=== PATIENT | female | born 1960 | race Hispanic/Latino ===

== ENCOUNTER 2019-06-08 08:31 | Outpatient (CLI) | payer OTHER, SELFPAY ==
--- NOTE | ~2019-06-08 | MM_ITS ---
EXAMINATION: MM screening seferino BI w tai HISTORY: Screening mammogram TECHNIQUE: Craniocaudal and mediolateral oblique 3-D tomosynthesis images were obtained and synthetic 2-D images were generated. CAD analysis was submitted and interpreted. COMPARISON: 07/22/2018 bilateral digital screening mammogram BREAST PARENCHYMAL COMPOSITION: There are scattered areas of fibroglandular density. FINDINGS: There is no evidence of suspicious mass, calcification, or architectural distortion to sugg est malignancy in either breast. There has been no suspicious interval change. IMPRESSION: 1. No mammographic evidence of malignancy. 2. Recommend routine screening mammography in one year. BI-RADS Category 1: Negative Reviewed, dictated and finalized at location A. OFFICER
== END 2019-06-08 08:32 | disposition home or self-care (01) ==
LOC: ANHIMG 08:34
PROVIDERS: PCP Nurse Practitioner Adult Health; Visit Provider Nurse Practitioner Adult Health
DX: Z12.31 Encounter for screening mammogram for malignant neoplasm of breast (principal)
CPT/HCPCS: 77063; 77067

== ENCOUNTER 2019-09-07 23:10 | Emergency (ER) | payer OTHER, SELFPAY ==
--- NOTE | ~2019-09-07 | CT_ITS ---
EXAMINATION: CT abdomen pelvis w con DATE: 09/08/2019 02:26 INDICATION: Elevated liver function tests. Vomiting. TECHNIQUE: Computed tomography (CT) of the abdomen and pelvis was performed with 100 cc Omnipaque 350 intravenous contrast. Automated exposure control and iterative reconstruction technique were employe d. Exam dose: 823.25 mGy-cm total exam DLP. COMPARISON: 07/05/2018 CT abdomen pelvis FINDINGS: The lung bases are clear. Normal heart size. No pericardial or pleural effusion. There is surface nodularity of liver consistent with cirrhosis and somewhat mottled appearance densit y of the hepatic parenchyma, possibly due to regenerating nodules. Small hepatocellular carcinoma can not be definitively excluded. Recommend correlation with serum AFP.. No discrete hepatic space-occupy ing mass lesion is evident. The gallbladder is present. No bile duct or pancreatic duct dilatation. N o pancreatic mass lesion or calcification. Normal splenic size. Normal morphology of the adrenal glands. Approximately 3.3 cm right renal cyst. No urinary tract calculus or hydroureteronephrosis. The urinar y bladder is unremarkable. Status post hysterectomy. There is normal caliber of the abdominal aorta. No intraperitoneal or retroperitoneal or pelvic mass lesion or adenopathy or ascites. Very small hiatal hernia. Normal appendix. No bowel obstruction or intraperitoneal free air. Status post interbody and posterior spinal fusion at L5-S1. IMPRESSION: Cirrhosis Mottled appearance of hepatic parenchyma, which may be secondary to cirrhosis/regenerating nodules. S mall hepatocellular carcinoma cannot be definitively excluded. Consider correlation with serum AFP. Very small hiatal hernia Right renal cyst Status post hysterectomy Reviewed, dictated and finalized at Location A. Reviewed, dictated and finalized at location A. IMPRESSION: Cirrhosis Mottled appearance of hepatic parenchyma, which may be secondary to cirrhosis/r egenerating nodules. Small hepatocellular carcinoma cannot be definitively excl uded. Consider correlation with serum AFP. Very small hiatal hernia Right renal cyst Status post hysterectomy
--- NOTE | ~2019-09-07 | CT_ITS ---
EXAMINATION: CT brain wo con DATE: 09/08/2019 02:27 INDICATION: Headache. Vertigo. TECHNIQUE: Computed tomography (CT) of the head was performed without intravenous contrast. The mA wa s adjusted according to patient size. Iterative reconstruction technique was employed. Exam dose: 60 5.33 mGy-cm total exam DLP. COMPARISON: None FINDINGS: There is intravenous contrast material on board due to the prior CT abdomen and pelvis exam ination. No intracranial mass lesion or hemorrhage or cerebrovascular accident. No midline shift or mass effec t. Normal ventricular size. No subdural or epidural hematoma. No fracture or bone destruction of the cranial vault. IMPRESSION: No significant intracranial abnormality Reviewed, dictated and finalized at Location A. Reviewed, dictated and finalized at location A.
[2019-09-07 23:19] VITALS: BP 143/57; PULSE 79; RESP 18; TEMP 36.1; O2SAT 98
--- NOTE | 2019-09-07 23:40 | ECG_ITS ---
Measurements Intervals [place] Rate: 75 P: 43 [place]: 157 QRS: 43 QRSD: 84 T: 56 QT: 384 QTc: 431 Interpretive Statements SINUS RHYTHM BASELINE WANDER- II, V2-V6 BORDERLINE ECG Electronically Signed On 09-08-2019 7:11:36 CDT by Alex Ordonez D.O.
[2019-09-07 23:41] LABS: Basophils Percent Auto 0.4 % (0.2-1.2); Eosinophils Percent Auto 0.4 % (0-4.4); Hematocrit 43.9 % (37.0-47.0); Hemoglobin 14.7 g/dL (12.0-15.0); Immature Granulocyte Absolute 0.01 K/mm3 (0.00-0.031); Immature Granulocyte Percent A 0.2 % (0-0.5); Lymphocytes Absolute Auto 1.59 K/mm3 (0.9-3.2); Lymphocytes Percent Auto 29.7 % (18.3-44.2); Mean Corpuscular HGB Conc 33.5 g/dl (32-36); Mean Corpuscular Hemoglobin 30.4 pg (26-34); Mean Corpuscular Volume 90.7 fl (80-100); Mean Platelet Volume 10.7 fl (7.4-10.4); Monocytes Absolute Auto 0.8 K/mm3 (0.1-0.6); Monocytes Percent Auto 14.4 % (2.6-8.5); Neutrophils Absolute Auto 2.9 K/mm3 (1.3-6.7); Neutrophils Percent Auto 54.9 % (45.5-73.1); Platelet Count Result 166 k/mm3 (150-375); Red Blood Count 4.84 M/mm3 (4.2-5.4); Red Cell Distribution Width 14.3 % (11.5-14.5); White Blood Count 5.4 K/mm3 (4.5-10.0)
[2019-09-07 23:52] LABS: Alanine Aminotransferase 276 U/L (4-35); Albumin Level 4.2 g/dL (3.5-5.1); Alkaline Phosphatase 208 U/L (38-126); Aspartate Amino Transferase 491 U/L (14-36); Bilirubin,Total 0.4 mg/dL (0.2-1.3); Blood Urea Nitrogen 11 mg/dL (7-17); Calcium 9.4 mg/dL (8.4-10.2); Carbon Dioxide 27 mmol/L (22-30); Chloride 100 mmol/L (98-107); Estimated Glomerular Filt Rate > 60; Glucose 332 mg/dL (65-105); Lipase 149 U/L (23-300); Potassium 3.9 mmol/L (3.4-5.0); Sodium 135 mmol/L (137-145)
[2019-09-08] VITALS (7 sets, daily range): BP systolic 121–153; BP diastolic 55–95; PULSE 64–77; RESP 18–24; TEMP 37.2; O2SAT 95–98
--- NOTE | 2019-09-08 02:02 | ED.HA ---
HPI - Headache General Chief Complaint: Nausea/Vomiting/Diarrhea Stated Complaint: dizzy, vomiting, weak X2 weeks Time Seen by Provider: 09/08/19 01:54 History of Present Illness HPI Narrative: Patient presents with her daughter for headache and vertigo for 2-week. She has had short episodes of vertigo prior to that. She does not have history of migraine headaches. She vomits when the vertigo gets so bad. She knows about the elevated liver function, and has a GI doctor and has had a liver biopsy. As far as she knows all she has is fatty liver and possibly cirrhosis. She has abdominal pain periumbilical since yesterday. Her last vomiting was noon yesterday. She has not had any fever. She gives a headache is 7 out of 10. Her primary language is Irish and her daughter does some interpreting for us. MD elicited complaint: headache Related Data Allergies Allergy/AdvReac Type Severity Reaction Status Date / Time aspirin Allergy Intermediate Hives / Verified 07/05/18 18:20 Red Face Review of Systems Review of Systems: Narrative: CONSTITUTIONAL: Denies fever, chills, or sweats. EYES: Denies visual changes, redness, or discharge. ENT: Denies rhinorrhea, congestion, sore throat, or otalgia. CARDIOVASCULAR: Denies chest pain, palpitations, or edema. RESPIRATORY: Denies cough or dyspnea. GASTROINTESTINAL: He has abdominal pain, nausea, vomiting, but not diarrhea. GENITOURINARY: Denies dysuria or hematuria. SKIN: Denies rash or itching. MUSCULOSKELETAL: Denies back pain, joint pain, or myalgia. NEUROLOGIC: Denies numbness, or weakness. She has dizziness like the room is spinning. PSYCHIATRIC: Denies anxiety or depression. [facility] Surgical History Surgical History (Updated 09/08/19 @ 02:05 by Nano Saunders MD) History of hysterectomy History of lumbar fusion Social History Social History (Updated 09/08/19 @ 02:05 by Nano Saunders MD) Smoking status: Never smoker Alcohol intake: never Substance use: never Gender identity (if verbalized by the patient): Female Exam Narrative: Exam Narrative: GENERAL: Well-appearing, well-nourished, and in no acute distress. HEAD: Normocephalic, atraumatic. EYES: PERRLA and EOMI. ENT: Nares clear, no rhinorrhea or epistaxis. Mucous membranes moist. NECK: Supple. CHEST: Clear to auscultation. No respiratory distress. HEART: Regular rate and rhythm. No murmur heard. Normal peripheral pulses. ABDOMEN: Soft, mild tenderness about the umbilicus, nondistended, normal active bowel sounds. EXTREMITIES: Normal range of motion. No edema. SKIN: Warm, dry, no rash. NEURO: No focal deficits. Alert and oriented x3. PSYCH: Normal mood and affect. Course Reevaluation(s) Reevaluation #1: Went in to discuss the results of the CAT scans with the patient and her daughter. The medication and IV fluids has made her much better, but the vertigo is not entirely gone. I offered prescriptions and she accepts. I will also give them the name of her neurologist for follow-up. She sees Dr. Anglin at [facility] in [place] Date: 09/08/19 Time: 03:29 Vital Signs Vital signs: Vital Signs Temperature 97.0 F L 09/07/19 23:19 Pulse Rate 79 09/07/19 23:19 Respiratory Rate 18 09/07/19 23:19 Blood Pressure 143/57 H 09/07/19 23:19 Pulse Oximetry 98 09/07/19 23:19 Temperature 99.0 F 09/08/19 00:03 Pulse Rate 66 09/08/19 03:14 Respiratory Rate 24 H 09/08/19 03:14 Blood Pressure 136/67 09/08/19 03:14 Pulse Oximetry 95 09/08/19 03:14 MDM - Headache Differential Diagnosis Differential diagnosis: Likely migraine, tension headache and headache Medical Records Attestation: I reviewed the patient's medical records. Lab Data Attestation: I reviewed the patient's lab results. Result diagrams: 09/07/19 23:34 09/07/19 23:34 Labs: Lab Results 09/07/19 09/07/19 Range/Units 23:34 23:34 WBC 5.4 (4.5-10.0) K/mm3 RBC 4.84 (4.2-5.4) M/m
[2019-09-08] MEDS: METOCLOPRAMIDE HCL INJ 10 MG/2 ML VIAL IV PUSH (02:09)
[2019-09-08] MEDS: SODIUM CHLORIDE 0.9% IV 1,000 ML 999 ML IV CONT (02:09)
--- NOTE | 2019-09-25 11:17 | PC.NURSE ---
LATE ENTRY This note is being entered to document information to the patient's record. The following information was omitted on [09/08/19 ], by [Dayday Jordan RN]. NS stop time 0305, 1000ml infused
== END 2019-09-08 03:52 | disposition home or self-care (01) ==
PROVIDERS: Emergency Provider Emergency Medicine; PCP Nurse Practitioner Adult Health
DX: R42 Dizziness and giddiness (principal); R51 Headache; R11.2 Nausea with vomiting, unspecified; K74.60 Unspecified cirrhosis of liver; R94.31 Abnormal electrocardiogram [ECG] [EKG]; Z98.1 Arthrodesis status
CPT/HCPCS: 36415; 70450; 74177; 80053; 83690; 85025; 93005; 96361; 96374; 96375; 99284; J1200; J2765; J7030; Q9967

== ENCOUNTER 2019-09-19 18:07 | Inpatient (IN) | payer OTHER, SELFPAY ==
[2019-09-19] VITALS (7 sets, daily range): BP systolic 106–128; BP diastolic 60–68; PULSE 64–74; RESP 14–28; TEMP 36.6–36.8; O2SAT 90–98; BMI 31.0
--- NOTE | ~2019-09-19 | XR_ITS ---
EXAMINATION: XR chest 1V portable DATE: 09/19/2019 18:45 INDICATION: Shortness of breath. Posterior chest pain radiating anteriorly. TECHNIQUE: frontal view of the chest was obtained. COMPARISON: None FINDINGS: Small lung volumes. Diffuse bilateral airspace opacities. No pleural effusion or pneumothorax. The ca rdiomediastinal silhouette is within normal limits for AP technique. Visualized bones and soft tissue s are unremarkable. IMPRESSION: 1. Diffuse bilateral lung disease which could represent pulmonary edema and/or pneumonia. Reviewed, dictated and finalized at location A.
--- NOTE | ~2019-09-19 | CT_ITS ---
EXAMINATION: CTA chest PE protocol DATE: 09/20/2019 12:48 INDICATION: Hemoptysis. TECHNIQUE: Computed tomography angiography (CTA) of the chest was performed with 100 mL Omnipaque-350 intravenous contrast timed to evaluate the pulmonary arteries. Coronal maximum intensity projection 3D-reconstructions were created by the technologist. Automated exposure control and iterative reconst ruction technique were employed. The dose-length product was 396.91 mGy-cm. COMPARISON: CT abdomen and pelvis 09/08/2019 FINDINGS: There are scattered groundglass and airspace opacities involving all lobes. No pleural effu kassy. The heart size is normal. No pericardial effusion. There is no pulmonary embolus. There is mild mediastinal lymphadenopathy, likely reactive. The liver demonstrates surface nodularity and steatosi s, consistent with cirrhosis. There is mild thoracic spondylosis. IMPRESSION: 1. Diffuse lung disease, consistent with COVID-19 pneumonia. 2. No pulmonary embolus. Sensitivity is mildly decreased by motion artifact. 3. Mild mediastinal lymphadenopathy, likely reactive. 4. Cirrhosis of the liver. Reviewed, dictated and finalized at location A.
--- NOTE | 2019-09-19 18:25 | ECG_ITS ---
Measurements Intervals [place] Rate: 68 P: 5 [place]: 146 QRS: 9 QRSD: 89 T: 2 QT: 423 QTc: 450 Interpretive Statements SINUS RHYTHM EARLY PRECORDIAL R/S TRANSITION NONSPECIFIC ST & T-WAVE ABNORMALITY- INFERIOR LEADS BASELINE ARTIFACT- I, II, AVR, AVL, AVF, V4-V6 BORDERLINE ECG Electronically Signed On 09-20-2019 6:55:30 CDT by Alex Ordonez D.O.
--- NOTE | 2019-09-19 18:41 | ED.GENADULT ---
HPI - General Adult General Chief complaint: Chest Pain Stated complaint: ABN Chest xray Time Seen by Provider: 09/19/19 18:22 History of Present Illness HPI narrative: Patient is a 59 y/o female complaining of cough for last 2-3 weeks. She states that she coughs up blood occasionally. There is no alleviating or exacerbating factor. She has some chest pain with cough. She denies any fever or SOB. Of note, her is hospitalized for COVID infection. She tested negative for COVID recently. Patient does not speak fluent [place]. Daughter provided some history and provided translation. Related Data Home Medications Medication Instructions Recorded Confirmed cephalexin 09/19/19 ergocalciferol (vitamin D2) 09/19/19 famotidine 09/19/19 folic acid 09/19/19 meclizine mg 09/19/19 metformin mg 09/19/19 Allergies Allergy/AdvReac Type Severity Reaction Status Date / Time aspirin Allergy Intermediate Hives / Verified 09/19/19 18:32 Red Face Review of Systems Constitutional: Constitutional: Denies chills, Denies fever(s), Denies headache(s) and Denies weakness Eyes: Eyes: Denies blurry vision ENT: Denies headache(s) and Denies neck pain Cardiovascular: Cardiovascular: Reports chest pain and Denies dyspnea Respiratory: Respiratory: Reports cough and Denies dyspnea Gastrointestinal: Gastrointestinal: Denies abdominal pain, Denies diarrhea, Denies nausea and Denies vomiting Genitourinary: Genitourinary: Denies hematuria and Denies dysuria Musculoskeletal: Musculoskeletal: Denies back pain and Denies neck pain Neurologic: Denies headache(s) and Denies weakness [facility] Surgical History Surgical History History of hysterectomy History of lumbar fusion Social History Social History Smoking status: Never smoker Alcohol intake: never Substance use: never Gender identity (if verbalized by the patient): Female Exam Const: General: no acute distress and well developed Orientation/consciousness: oriented to person, oriented to place, oriented to time and patient oriented x3 HENMT: Head: normocephalic Ears: external ears normal General nose exam: Normal external nose present Eyes: General: appearance normal, both eyes and all related structures Conjunctivae: conjunctivae normal Neck: Neck: normal visual inspection and full ROM Chest: Chest palpation & inspection: normal inspection of the chest and no tenderness Resp: Effort & Inspection: normal respiratory effort Auscultation: clear to auscultation bilaterally Cardio: Rate: regular rate Rhythm: regular rhythm GI: GI Palp: No abdominal tenderness and Yes Soft to palpation Skin: General skin exam: normal color and turgor normal Neuro: General: oriented to person, oriented to place, oriented to time and patient oriented x3 Cognition (Neuro): normal cognition Extrem: General: normal to inspection, full ROM and no pedal edema Psych: Appearance: grossly normal Mental Status: mental status grossly normal Affect: normal affect Course Consultations Consultation #1: Discussed with Dr. Liang, who agrees to admit and recommends starting Zithromax. Date: 09/19/19 Time: 20:30 Vital Signs Vital signs: Vital Signs Temperature 36.8 C 09/19/19 18:26 Pulse Rate 74 09/19/19 18:26 Respiratory Rate 19 09/19/19 18:26 Blood Pressure 126/68 09/19/19 18:26 Pulse Oximetry 96 09/19/19 18:26 Temperature 36.8 C 09/19/19 18:26 Pulse Rate 68 09/19/19 19:15 Respiratory Rate 28 H 09/19/19 19:15 Blood Pressure 107/65 09/19/19 19:15 Pulse Oximetry 90 09/19/19 19:15 Medical Decision Making Vital Signs Vital Signs: Vital Signs Temperature 36.8 C 09/19/19 18:26 Pulse Rate 74 09/19/19 18:26 Respiratory Rate 19 09/19/19 18:26 Blood Pressure 126/68 09/19/19 18:26 Pulse Oximetry 96 09/19/19 18:26
[2019-09-19 18:43] LABS: Basophils Percent Auto 0.3 % (0.2-1.2); Eosinophils Absolute Auto 0.1 K/mm3 (0-0.3); Hematocrit 40.8 % (37.0-47.0); Hemoglobin 13.8 g/dL (12.0-15.0); Immature Granulocyte Absolute 0.02 K/mm3 (0.00-0.031); Immature Granulocyte Percent A 0.3 % (0-0.5); Lymphocytes Absolute Auto 2.22 K/mm3 (0.9-3.2); Lymphocytes Percent Auto 30.8 % (18.3-44.2); Mean Corpuscular HGB Conc 33.8 g/dl (32-36); Mean Corpuscular Hemoglobin 30.3 pg (26-34); Mean Corpuscular Volume 89.5 fl (80-100); Mean Platelet Volume 11.2 fl (7.4-10.4); Monocytes Absolute Auto 0.9 K/mm3 (0.1-0.6); Monocytes Percent Auto 11.8 % (2.6-8.5); Neutrophils Percent Auto 55.8 % (45.5-73.1); Platelet Count Result 215 k/mm3 (150-375); Red Blood Count 4.56 M/mm3 (4.2-5.4); Red Cell Distribution Width 13.6 % (11.5-14.5); White Blood Count 7.2 K/mm3 (4.5-10.0)
[2019-09-19 18:56] LABS: Alanine Aminotransferase 74 U/L (4-35); Albumin Level 3.8 g/dL (3.5-5.1); Alkaline Phosphatase 173 U/L (38-126); Aspartate Amino Transferase 66 U/L (14-36); Bilirubin,Total 0.8 mg/dL (0.2-1.3); Blood Urea Nitrogen 6 mg/dL (7-17); Calcium 8.3 mg/dL (8.4-10.2); Carbon Dioxide 21 mmol/L (22-30); Chloride 102 mmol/L (98-107); Estimated Glomerular Filt Rate > 60; Glucose 194 mg/dL (65-105); Potassium 3.8 mmol/L (3.4-5.0); Sodium 132 mmol/L (137-145)
[2019-09-19 19:08] LABS: Troponin I < 0.012 ng/mL (0.000-0.034)
[2019-09-19 19:11] LABS: Add Urine Microscopic? NO; Appearance Urine Clear (Clear); Bilirubin Urine Negative (Negative); Blood Urine Negative (Negative); Color Urine Colorless (Yellow); Glucose Urine UA Negative (Negative); Ketones Urine Negative (Negative); Leukocyte Esterase Ur Negative LEU/UL (Negative); Nitrate Urine Negative (Negative); Protein Urine Negative (Negative); Urobilinogen Urine Negative mg/dL (<2.0)
[2019-09-19 19:13] LABS: Specific Grav Ur 1.003 (1.001-1.035)
[2019-09-19 19:17] LABS: INR 1.1; Prothrombin Time 13.4 Seconds (11.1-14.7)
[2019-09-19 19:18] LABS: Partial Thromboplastin Time 29.6 SECONDS (22.3-36.8)
--- NOTE | 2019-09-19 19:21 | PC.NURSE ---
called lab for add ons
[2019-09-19 19:40] LABS: CRP 3.6 mg/dL (<1.0); Lactate Dehydrogenase 803 U/L (313-618)
[2019-09-19 20:39] LABS: Hepatitis B Surface Antigen Negative (Negative)
[2019-09-19 20:44] LABS: HAV RESULT Negative (Negative); Hepatitis B Core IgM Result Negative (Negative)
[2019-09-19 20:56] LABS: Hepatitis C Virus Antibody Negative (Negative)
--- NOTE | 2019-09-19 21:55 | ADMGEN ---
This patient, Paloma Preston, was admitted to 3 [facility] Surg Room 330-01. Patient/family oriented to hospital policies and general routines including ID bracelet, bed and alarms, visiting hours, pain management, procedures, bathroom and other care routines, personal items, smoking policy, room service/diet, and visiting hours. Valuables list has been completed. Information on how to activate the Rapid Response Team has been discussed. Patient/Family are encouraged to report perceived risks to care and to ask questions if they do not understand what they are told or what they should do.
[2019-09-20] VITALS (14 sets, daily range): BP systolic 100–139; BP diastolic 48–69; PULSE 48–76; RESP 16–20; TEMP 36.2–36.9; O2SAT 92–100
[2019-09-20] MEDS: DULOXETINE 60 MG CAPSULE.DR PO (09:01)
[2019-09-20] MEDS: PANTOPRAZOLE 40 MG TABLET PO ×2 (09:01→17:06)
[2019-09-20] MEDS: FOLIC ACID 1 MG TABLET PO (09:01)
[2019-09-20] MEDS: FAMOTIDINE 20 MG TABLET PO (09:01)
[2019-09-20 09:03] LABS: Glucose Point of Care 161 (65-105)
--- NOTE | 2019-09-20 12:04 | PM.IMHP ---
H&P: HPI History of Present Illness Chief complaint: pneumonia Narrative: Paloma Preston is a 59 year old female with PMH significant for T2DM, GERD, anxiety, MALORIE, cirrhosis, and arthritis who presented to the ED with a c/o cough for the past month. She reports that she occasionally coughs up bright red blood. She reports that she developed chest wall and back discomfort after having several severe coughing fits and notes that she occasionally has pleuritic discomfort. She reports that she went to see her PCP who advised that she come to the ED for further evaluation. She endorses that her is currently hospitalized at [facility] for COVID-19 and has been in the hospital for approximately 1 week. She reports that she previously tested negative for COVID-19. She denies associated fever and chills. She denies shortness of breath. She denies palpitations. She reports poor appetite for the past 3 weeks and notes weight loss. She also endorses malaise. She reports that she has a hx of tuberculosis 20 years ago and notes that she was treated with antibiotics for 6 months but cannot remember the exact antibiotics. Initial workup in the ED revealed WBC 7.2, Hb 13.8, Hct 40.8, platelet count of 215, sodium 132, potassium 3.2, CO2 21, BUN 6, Cr 0.4, glucose 194, ferritin 266, AST 66, ALT 74, ALP 173, troponin <0.012, CRP 3.6, UA unremarkable, hepatitis panel negative, and CXR with diffuse bilateral airspace opacities. She was treated with IV azithromycin and admitted to the hospitalist service. Review of Systems Review of Systems: Narrative: Constitutional: Denies fever and chills. Reports decreased appetite,weight loss, and malaise. Eyes: Denies vision change. No additional eye complaints. ENT: Denies change in hearing, nasal congestion, dysphagia, odynophagia, and sore throat. Cardiovascular: Denies palpitations and angina. Denies PND and orthopnea. Denies dyspnea on exertion. Respiratory: Reports cough for approximately 1 month with occasional blood. Reports chest and back discomfort with coughing and pleuritic discomfort. Gastrointestinal: Denies abdominal pain, nausea, and vomiting. Denies diarrhea and constipation. Genitourinary: Denies dysuria, frequency, urgency, and hesitancy. Reports that she was recently prescribed cephalexin for a UTI. Musculoskeletal: Reports chronic joint discomfort from arthritis. Skin: Denies lesions and wounds. Neurologic: Denies focal weakness, paresthesias, confusion, and speech change. Psychiatric: Denies mood change. Denies anxiety and depression. Hematologic: Denies easy bruising and bleeding. All systems reviewed & are unremarkable except as noted in HPI and below PMFSH Past Medical History Medical History (Updated 09/20/19 @ 15:02 by Giulia Viveros PA-C) Anxiety Arthritis Cirrhosis of liver She reports a hx of liver cirrhosis. She follows with a specialist at [facility]. She reports that she had a biopsy per her [facility] specialist but cannot provide any further details. GERD (gastroesophageal reflux disease) History of active tuberculosis Sleep apnea Type 2 diabetes mellitus Vertigo Surgical History Surgical History (Updated 09/20/19 @ 14:18 by Giulia Viveros PA-C) History of hysterectomy History of lumbar fusion History of total left hip arthroplasty Family History Family History (Updated 09/20/19 @ 14:21 by Giulia Viveros PA-C) Mother No problems noted. Father Diabetes mellitus Other Kidney disease Social History Social History (Updated 09/20/19 @ 14:26 by Giulia Viveros PA-C) Social History: Mrs. Preston reports that she lives at home in [place], [place] with her and two of her seven children. She reports that she has not worked in 4 years. 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 She wishes to be a full code. She has designated her , Yvonne Preston, as her surrogate decision maker. Smoking status: Never smoker Alcohol intake: never S
[2019-09-20 12:31] LABS: Glucose Point of Care 199 (65-105)
[2019-09-20 12:45] LABS: SARS-CoV-2 RNA PCR Positive
[2019-09-20] MEDS: ONDANSETRON HCL ODT 4 MG TABLET PO (15:36)
--- NOTE | 2019-09-20 16:29 | PC.NURSE ---
Addendum entered by Alysa Reyna RN 09/20/19 16:46: Pt is A&O x 4, and has cell phone and house phone at bedside. Original Note: Pt's daughter had her employer call and request this nurse call the daughter (Stacey) for an update regarding pt's status. This daughter was not listed on the pt's medical chart be given information, so this nurse checked with pt, that it was ok to give this daughter (Stacey) information. Pt stated, Stacey could be given information. Called Stacey at the number provided by her employer. Stacey was upset and had concerns regrading her mother's care and medical plan. Educated daughter that pt's are often initially NPO in case testing or procedures are needed. Since I have been on shift, pt has eaten both breakfast and lunch. Lunch was slightly delayed due to pt going for a test, and that staff has been in pt's room multiple times throughout this shift. Pt has been up to the bathroom, given medication, food/water, and checked in on frequently. Communication between staff and pt has been very easy, however the head waiter/waitress device is available as needed. Notified Stacey that pt's COVID test just resulted, and pt is positive. Stacey stated she was unaware pt's test was positive, however she had her employer call stating that she had to be isolated and needed more information for her work
[2019-09-20] MEDS: INSULIN ASPART (*BKC) 100 UNITS/ML SUB-Q (17:09)
[2019-09-20 18:09] LABS: Glucose Point of Care 257 (65-105)
[2019-09-20] MEDS: ENOXAPARIN 40 MG/0.4 ML SYRINGE SUB-Q (20:22)
[2019-09-20 21:23] LABS: Glucose Point of Care 239 (65-105)
[2019-09-21] VITALS (9 sets, daily range): BP systolic 130–151; BP diastolic 56–66; PULSE 61–70; RESP 16–18; TEMP 36.6; O2SAT 92–97
[2019-09-21 06:24] LABS: Basophils Percent Auto 0.5 % (0.2-1.2); Eosinophils Absolute Auto 0.1 K/mm3 (0-0.3); Eosinophils Percent Auto 1.2 % (0-4.4); Hematocrit 40.7 % (37.0-47.0); Hemoglobin 13.7 g/dL (12.0-15.0); Immature Granulocyte Absolute 0.01 K/mm3 (0.00-0.031); Immature Granulocyte Percent A 0.2 % (0-0.5); Lymphocytes Percent Auto 40.8 % (18.3-44.2); Mean Corpuscular HGB Conc 33.7 g/dl (32-36); Mean Corpuscular Hemoglobin 30.3 pg (26-34); Mean Platelet Volume 10.5 fl (7.4-10.4); Monocytes Absolute Auto 0.5 K/mm3 (0.1-0.6); Monocytes Percent Auto 8.5 % (2.6-8.5); Neutrophils Absolute Auto 2.8 K/mm3 (1.3-6.7); Neutrophils Percent Auto 48.8 % (45.5-73.1); Platelet Count Result 230 k/mm3 (150-375); Red Blood Count 4.52 M/mm3 (4.2-5.4); Red Cell Distribution Width 13.3 % (11.5-14.5); White Blood Count 5.6 K/mm3 (4.5-10.0)
[2019-09-21 06:40] LABS: Alanine Aminotransferase 67 U/L (4-35); Albumin Level 3.3 g/dL (3.5-5.1); Alkaline Phosphatase 168 U/L (38-126); Aspartate Amino Transferase 63 U/L (14-36); Bilirubin,Total 0.5 mg/dL (0.2-1.3); Blood Urea Nitrogen 6 mg/dL (7-17); CRP 2.6 mg/dL (<1.0); Calcium 8.1 mg/dL (8.4-10.2); Carbon Dioxide 23 mmol/L (22-30); Chloride 104 mmol/L (98-107); Estimated CRCL calculation 101 ml/min; Estimated Glomerular Filt Rate > 60; Glucose 142 mg/dL (65-105); Lactate Dehydrogenase 522 U/L (313-618); Potassium 3.7 mmol/L (3.4-5.0); Sodium 133 mmol/L (137-145)
[2019-09-21 06:41] LABS: D Dimer 0.48 ug/mL (<0.48)
[2019-09-21 06:44] LABS: NT Pro B Type Natriuretic Pept 134 PG/ML (5-100)
[2019-09-21 07:19] LABS: Vitamin D 25 Hydroxy 26.4 ng/mL
[2019-09-21] MEDS: DULOXETINE 60 MG CAPSULE.DR PO (08:17)
[2019-09-21] MEDS: FAMOTIDINE 20 MG TABLET PO (08:17)
[2019-09-21] MEDS: FOLIC ACID 1 MG TABLET PO (08:17)
[2019-09-21] MEDS: PANTOPRAZOLE 40 MG TABLET PO (08:17)
[2019-09-21] MEDS: ENOXAPARIN 40 MG/0.4 ML SYRINGE SUB-Q (08:17)
[2019-09-21 09:05] LABS: Glucose Point of Care 151 (65-105)
[2019-09-21 12:08] LABS: Glucose Point of Care 181 (65-105)
--- NOTE | 2019-09-21 13:03 | PM.DS ---
DS: Admitting Diagnosis Admitting Diagnosis Admitting Diagnosis: Contact with and (suspected) exposure to other viral communicable diseases DS: Discharge Diagnosis Discharge Diagnosis (1) COVID-19: Code(s): U07.1 - COVID-19 Status: Acute (2) Pneumonia: Qualifiers: Pneumonia type: due to unspecified organism Laterality: bilateral Lung location: unspecified part of lung Qualified Code(s): J18.9 - Pneumonia, unspecified organism Code(s): J18.9 - Pneumonia, unspecified organism Status: Acute (3) Hemoptysis: Code(s): R04.2 - Hemoptysis Status: Resolved (4) Type 2 diabetes mellitus: Qualifiers: Diabetes mellitus custodial insulin use: without termite helper use Diabetes mellitus complication status: without complication Qualified Code(s): E11.9 - Type 2 diabetes mellitus without complications Code(s): E11.9 - Type 2 diabetes mellitus without complications Status: Chronic (5) GERD (gastroesophageal reflux disease): Qualifiers: Esophagitis presence: esophagitis presence not specified Qualified Code(s): K21.9 - Gastro-esophageal reflux disease without esophagitis Code(s): K21.9 - Gastro-esophageal reflux disease without esophagitis Status: Chronic (6) Cirrhosis of liver: Qualifiers: Hepatic cirrhosis type: unspecified hepatic cirrhosis Ascites presence: without ascites Qualified Code(s): K74.60 - Unspecified cirrhosis of liver Code(s): K74.60 - Unspecified cirrhosis of liver Status: Chronic Assessment and Plan: (7) Vertigo: Code(s): R42 - Dizziness and giddiness Status: Chronic (8) Sleep apnea: Qualifiers: Sleep apnea type: unspecified type Qualified Code(s): G47.30 - Sleep apnea, unspecified Code(s): G47.30 - Sleep apnea, unspecified Status: Chronic (9) Anxiety: Code(s): F41.9 - Anxiety disorder, unspecified Status: Chronic DS: Summary Hospital Course Reason for hospitalization: Headaches, myalgia, cough Hospital Course: Paloma Preston is a 59 year old female with PMH significant for T2DM, GERD, anxiety, MALORIE, cirrhosis, and arthritis who presented to the ED with a c/o cough for the past month with 3 episodes of bright red blood streaks. She reports that she developed chest wall and back discomfort after having several severe coughing fits and notes that she occasionally has pleuritic discomfort. Other associated symptoms included malaise, poor appetite, and weight loss. She reported that her is currently hospitalized at [facility] for COVID-19 and has been in the hospital for approximately 1 week. She reported a hx of tuberculosis 20 years ago and notes that she was treated with antibiotics for 6 months. Initial workup in the ED revealed WBC 7.2, Hb 13.8, Hct 40.8, platelet count of 215, sodium 132, potassium 3.2, CO2 21, BUN 6, Cr 0.4, glucose 194, ferritin 266, AST 66, ALT 74, ALP 173, troponin <0.012, CRP 3.6, UA unremarkable, hepatitis panel negative, and CXR with diffuse bilateral airspace opacities. She was treated with IV azithromycin and admitted to the hospitalist service. IV ceftriaxone was added empirically. She was tested for TB due to her hx and hemoptysis. She could not produce any additional sputum as her cough was improving and was no longer productive. CTA chest was performed and was negative for PE. CTA chest revealed diffuse lung disease consistent with COVID-19 pneumonia. She also had mild mediastinal lymphadenopathy which was read by radiology as likely reactive. Cirrhosis of the liver was visualized. She is established with a specialist at [facility] for her cirrhosis and reports a hx of liver biopsy one year ago. AFP was ordered and is still pending. COVID-19 testing was positive and her clinical presentation was felt to be more consistent with a COVID-19 infection. She remained very stable from a respiratory standpoint and was stable o
[2019-09-25 22:23] LABS: NIL 0.08 IU/mL; Quantiferon TB Plus, 1T NEGATIVE (NEGATIVE); TB1-NIL 0.06 IU/mL; TB2-NIL 0.12 IU/mL
== END 2019-09-21 14:00 | disposition home or self-care (01) | DRG 137 ==
LOC: ANHED 20:41 → ANH3MEDSUR 20:52
PROVIDERS: Physician Assistant; Admitting Provider Internal Medicine; Emergency Provider Emergency Medicine; PCP Nurse Practitioner Adult Health; Visit Provider Internal Medicine
DX: U07.1 COVID-19 (principal); J12.89 Other viral pneumonia; R04.2 Hemoptysis; E11.9 Type 2 diabetes mellitus without complications; K21.9 Gastro-esophageal reflux disease without esophagitis; K74.60 Unspecified cirrhosis of liver; F41.9 Anxiety disorder, unspecified; R42 Dizziness and giddiness; G47.33 Obstructive sleep apnea (adult) (pediatric); M19.90 Unspecified osteoarthritis, unspecified site; Z96.642 Presence of left artificial hip joint; Z98.1 Arthrodesis status; Z90.710 Acquired absence of both cervix and uterus
CPT/HCPCS: 36415; 71045; 71275; 80053; 80074; 81003; 82105; 82306; 82728; 83036; 83615; 83880; 84484; 85025; 85380; 85610; 85730; 86140; 86480; 87040; 87635; 93005; 96365; 96366; 96367; 99285; A9270; C9803; G0378; G0379; J0456; J0696; J1650; J1815; Q9967; U0003

== ENCOUNTER 2019-11-04 09:33 | Emergency (ER) | payer OTHER, SELFPAY ==
[2019-11-04] VITALS (7 sets, daily range): BP systolic 122–151; BP diastolic 54–75; PULSE 58–77; RESP 19–28; TEMP 36.4–36.7; O2SAT 88–95
[2019-11-04 09:43] LABS: Glucose Point of Care 282 (65-105)
--- NOTE | 2019-11-04 09:51 | ED.ABDPAIN ---
HPI - Abdominal Pain General Chief Complaint: Abdominal Pain Stated Complaint: n/v/d/abd pain Time Seen by Provider: 11/04/19 09:50 History of Present Illness HPI narrative: Epigastric pain since this morning. Radiates to the back. Associated with nausea, vomiting, diarrhea. She denies ever having this pain before. No previous abdominal surgeries. Related Data Home Medications Medication Instructions Recorded Confirmed cephalexin 500 mg PO BID 09/19/19 09/19/19 duloxetine 60 mg PO DAILY 09/19/19 09/19/19 ergocalciferol (vitamin D2) 1,250 mcg PO WEEKLY 09/19/19 09/19/19 famotidine 20 mg PO DAILY 09/19/19 09/19/19 folic acid 1 mg PO DAILY 09/19/19 09/19/19 metformin 500 mg PO BID 09/19/19 09/19/19 omeprazole 40 mg PO DAILY 09/19/19 09/19/19 Allergies Allergy/AdvReac Type Severity Reaction Status Date / Time aspirin Allergy Intermediate Hives / Verified 11/04/19 09:46 Red Face Review of Systems Review of Systems: All systems reviewed & are unremarkable except as noted in HPI and below Constitutional: Constitutional: Denies fever(s) Cardiovascular: Cardiovascular: Denies chest pain Respiratory: Respiratory: Reports dyspnea Gastrointestinal: Gastrointestinal: Reports abdominal pain, Reports diarrhea, Reports nausea and Reports vomiting Psychiatric: Psychiatric: Reports anxiety PMFSH Past Medical History Medical History Anxiety Arthritis Cirrhosis of liver She reports a hx of liver cirrhosis. She follows with a specialist at [facility]. She reports that she had a biopsy per her [facility] specialist but cannot provide any further details. GERD (gastroesophageal reflux disease) History of active tuberculosis Sleep apnea Type 2 diabetes mellitus Vertigo Surgical History Surgical History History of hysterectomy History of lumbar fusion History of total left hip arthroplasty Family History Family History Mother No problems noted. Father Diabetes mellitus Other Kidney disease Social History Social History Social History: Mrs. Preston reports that she lives at home in [place], [place] with her and two of her seven children. She reports that she has not worked in 4 years. 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 She wishes to be a full code. She has designated her , Yvonne Preston, as her surrogate decision maker. Smoking status: Never smoker Alcohol intake: never Substance use: never Gender identity (if verbalized by the patient): Female Spiritual care concerns: No Exam Const: General: healthy appearing, no acute distress and alert Orientation/consciousness: patient oriented x3 HENMT: Head: normal to inspection Chest: Chest palpation & inspection: normal inspection of the chest and no tenderness Resp: Effort & Inspection: normal respiratory effort Auscultation: clear to auscultation bilaterally Cardio: Rate: regular rate Rhythm: regular rhythm GI: Inspection: non-distended GI Palp: Yes Soft to palpation and No Tenderness to palpation present (GI) Skin: General skin exam: normal color Neuro: General: patient oriented x3, moves all extremities and CN's II-XI intact bilaterally Speech: normal speech Extrem: General: normal to inspection Psych: Affect: Anxious affect present Course Vital Signs Vital signs: Vital Signs Temperature 36.4 C 11/04/19 09:37 Pulse Rate 77 11/04/19 09:37 Respiratory Rate 28 H 11/04/19 09:37 Blood Pressure 151/73 H 11/04/19 09:37 Pulse Oximetry 95 11/04/19 09:37 Temperature 36.7 C 11/04/19 13:01 Pulse Rate 70 11/04/19 13:01 Respiratory Rate 20 11/04/19 13:01 Blood Pressure 122/62 11/04/19 13:01 Pulse Oximetry 93 11/04/19 13:01 MDM - Abdominal Pain MDM Narrati
[2019-11-04] MEDS: PANTOPRAZOLE SODIUM IV 40 MG VIAL IV PUSH (10:01)
[2019-11-04] MEDS: ONDANSETRON INJ 4 MG/2 ML VIAL IV PUSH (10:01)
[2019-11-04 10:19] LABS: Basophils Percent Auto 0.2 % (0.2-1.2); Eosinophils Percent Auto 0.1 % (0-4.4); Hematocrit 45.1 % (37.0-47.0); Hemoglobin 15.3 g/dL (12.0-15.0); Immature Granulocyte Absolute 0.03 K/mm3 (0.00-0.031); Immature Granulocyte Percent A 0.3 % (0-0.5); Lymphocytes Absolute Auto 2.53 K/mm3 (0.9-3.2); Lymphocytes Percent Auto 28.5 % (18.3-44.2); Mean Corpuscular HGB Conc 33.9 g/dl (32-36); Mean Corpuscular Hemoglobin 30.8 pg (26-34); Mean Corpuscular Volume 90.7 fl (80-100); Mean Platelet Volume 10.4 fl (7.4-10.4); Monocytes Absolute Auto 0.4 K/mm3 (0.1-0.6); Monocytes Percent Auto 4.8 % (2.6-8.5); Neutrophils Absolute Auto 5.9 K/mm3 (1.3-6.7); Neutrophils Percent Auto 66.1 % (45.5-73.1); Platelet Count Result 172 k/mm3 (150-375); Red Blood Count 4.97 M/mm3 (4.2-5.4); Red Cell Distribution Width 14.1 % (11.5-14.5); White Blood Count 8.9 K/mm3 (4.5-10.0)
[2019-11-04 10:25] LABS: Add Urine Microscopic? YES; Appearance Urine Clear (Clear); Bilirubin Urine Negative (Negative); Blood Urine Negative (Negative); Color Urine Straw (Yellow); Glucose Urine UA 3+ mg/dL (Negative); Ketones Urine 1+ mg/dL (Negative); Leukocyte Esterase Ur Negative LEU/UL (Negative); Nitrate Urine Negative (Negative); Protein Urine Negative (Negative); RBC Urine 0-2 /hpf (0-2); Specific Grav Ur 1.025 (1.001-1.035); Squamous Epithelial Cell Urine Moderate /hpf (Few); Urobilinogen Urine Negative mg/dL (<2.0); WBC Urine 0-3 /hpf
[2019-11-04 10:31] LABS: Alanine Aminotransferase 181 U/L (4-35); Albumin Level 4.3 g/dL (3.5-5.1); Alkaline Phosphatase 209 U/L (38-126); Anion Gap 12.5 mmol/L (7-16); Aspartate Amino Transferase 108 U/L (14-36); Bilirubin,Total 0.7 mg/dL (0.2-1.3); Blood Urea Nitrogen 11 mg/dL (7-17); Calcium 9.4 mg/dL (8.4-10.2); Carbon Dioxide 29 mmol/L (22-30); Chloride 100 mmol/L (98-107); Estimated CRCL calculation 103 ml/min; Estimated Glomerular Filt Rate > 60; Glucose 278 mg/dL (65-105); Lipase 92 U/L (23-300); Potassium 4.5 mmol/L (3.4-5.0); Sodium 137 mmol/L (137-145)
== END 2019-11-04 13:31 | disposition home or self-care (01) ==
PROVIDERS: Emergency Provider Emergency Medicine; PCP Nurse Practitioner Adult Health
DX: R10.13 Epigastric pain (principal); E11.9 Type 2 diabetes mellitus without complications; K74.60 Unspecified cirrhosis of liver; K21.9 Gastro-esophageal reflux disease without esophagitis; G47.30 Sleep apnea, unspecified; Z79.84 Long term (current) use of oral hypoglycemic drugs; Z98.1 Arthrodesis status
CPT/HCPCS: 36415; 80053; 81001; 82948; 83690; 85025; 96374; 96375; 99284; A9270; C9113; J2405

== ENCOUNTER 2020-11-22 11:09 | Outpatient (CLI) | payer OTHER, SELFPAY ==
--- NOTE | ~2020-11-22 | MM_ITS ---
EXAMINATION: MM screening seferino BI w tai HISTORY: Screening mammogram TECHNIQUE: Craniocaudal and mediolateral oblique 3-D tomosynthesis images were obtained and synthetic 2-D images were generated. CAD analysis was submitted and interpreted. COMPARISON: 06/08/2019, 07/22/2017 bilateral digital screening mammogram examinations BREAST PARENCHYMAL COMPOSITION: There are scattered areas of fibroglandular density. FINDINGS: There is no evidence of suspicious mass, calcification, or architectural distortion to sugg est malignancy in either breast. There has been no suspicious interval change. IMPRESSION: 1. No mammographic evidence of malignancy. 2. Recommend routine screening mammography in one year. BI-RADS Category 1: Negative Reviewed, dictated and finalized at location A.
== END 2020-11-22 11:10 | disposition home or self-care (01) ==
LOC: ANHIMG 11:10
PROVIDERS: PCP Nurse Practitioner Adult Health; Visit Provider Nurse Practitioner Adult Health
DX: Z12.31 Encounter for screening mammogram for malignant neoplasm of breast (principal)
CPT/HCPCS: 77063; 77067

== ENCOUNTER 2021-09-23 01:13 | Day surgery (SDC) | payer OTHER, SELFPAY ==
[2021-09-08 13:33] VITALS: BMI 32.0
[2021-09-23 08:39] VITALS: BP 163/55; PULSE 50; RESP 18; TEMP 36.3; O2SAT 99
[2021-09-23] MEDS: LACTATED RINGERS 1,000 ML 150 ML IV CONT (08:42)
--- NOTE | 2021-09-23 08:45 | WPDANESEPPF ---
Anes - Initial Pre Proc Eval Procedure: Operation Date: 09/23/21 09:30 Proposed Procedures p Screening Colonoscopy - Shiva Knutson MD Date/Time: 09/23/21 08:45 Surgeon: Shiva Knutson MD Pre Op Diagnosis: neoplasm screening Patient Data Age: 61 Gender: F Height: 1.6 m Weight: 88.6 kg Last Vital Signs Temp 36.3 C L 09/23/21 08:39 Pulse 50 L 09/23/21 08:39 Resp 18 09/23/21 08:39 BP 163/55 H 09/23/21 08:39 Pulse Ox 99 09/23/21 08:39 O2 Del Method Room Air 09/23/21 08:39 Allergies Allergy/AdvReac Type Severity Reaction Status Date / Time aspirin Allergy Intermediate Hives / Verified 09/23/21 08:37 Red Face Home Medications Medication Instructions Recorded Confirmed Type duloxetine 60 mg capsule,delayed 60 mg PO DAILY 09/19/19 09/08/21 History release ergocalciferol (vitamin D2) 1,250 1,250 mcg PO WEEKLY 09/19/19 09/08/21 History mcg (50,000 unit) capsule famotidine 20 mg tablet 20 mg PO DAILY 09/19/19 09/08/21 History folic acid 1 mg tablet 1 mg PO DAILY 09/19/19 09/08/21 History metformin 500 mg tablet 500 mg PO BID 09/19/19 09/08/21 History omeprazole 40 mg capsule,delayed 40 mg PO DAILY 09/19/19 09/08/21 History release azithromycin 250 mg tablet 250 mg PO DAILY 3 days #3 tabs 09/21/19 09/08/21 Rx adalimumab 40 mg/0.8 mL See Rx Instructions .Route .COMPLEX 09/08/21 09/08/21 History subcutaneous pen kit (Humira Pen) dulaglutide 1.5 mg/0.5 mL 1.5 mg subcut WEEKLY 09/08/21 09/08/21 History subcutaneous pen injector (Trulicity) gabapentin 400 mg tablet 400 mg PO DAILY 09/08/21 09/08/21 History liraglutide 0.6 mg/0.1 mL (18 mg/3 18 mg subcut DAILY 09/08/21 09/08/21 History mL) subcutaneous pen injector (Victoza 3-Wolfgang) sitagliptin 100 mg tablet (Januvia) 100 mg PO DAILY 09/08/21 09/08/21 History Patient hx anesthesia problems: none Family hx anesthesia problems: none Results Review: All pre-operative results and documents have been reviewed as part of the pre-operative evaluation. [facility] Past Medical History Medical History (Updated 11/05/19 @ 00:00 by Jazmine Kerns) Anxiety Arthritis Cirrhosis of liver She reports a hx of liver cirrhosis. She follows with a specialist at [facility]. She reports that she had a biopsy per her [facility] specialist but cannot provide any further details. GERD (gastroesophageal reflux disease) History of active tuberculosis Sleep apnea Type 2 diabetes mellitus Vertigo Surgical History Surgical History History of hysterectomy History of lumbar fusion History of total left hip arthroplasty Family History Family History Mother No problems noted. Father Diabetes mellitus Other Kidney disease Social History Social History Social History: Mrs. Preston reports that she lives at home in [place], [place] with her and two of her seven children. She reports that she has not worked in 4 years. 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 She wishes to be a full code. She has designated her , Yvonne Preston, as her surrogate decision maker. Smoking status: Never smoker Alcohol intake: never Substance use: never Living arrangements: with family Gender identity (if verbalized by the patient): Female Sexual Orientation (if Verbalized by the Patient): Straight or Heterosexual Spiritual care concerns: No Anes - Eval Final PreProcedure Day of Procedure 09/23/21 08:45 Patient weight: obese Heart: regular rate and rhythm Lungs: clear to auscultation and normal air movement Airway: Mallampati scale class II Neurological: alert and oriented Last oral intake: >/= 8 hours ASA classification: IV Emergent: no Anesthetic plan: proceed Anesthesia type and monitoring: general GIVS Results Revie
[2021-09-23 08:47] LABS: Glucose Point of Care 202 mg/dl (65-105)
--- NOTE | 2021-09-23 09:23 | SUR.PREOP ---
Patient did not drink any prep. Patient given new instructions and new arrival date and time for procedure.
== END 2021-09-23 09:24 | disposition home or self-care (01) ==
PROVIDERS: PCP Nurse Practitioner Adult Health; Visit Provider Internal Medicine Gastroenterology
PROC: 0DJD8ZZ Inspection of Lower Intestinal Tract, Via Natural or Artificial Opening Endoscopic (ICD-10-PCS; CPT 45378; principal; 2021-09-23 09:30)
DX: Z12.11 Encounter for screening for malignant neoplasm of colon (principal); Z53.09 Procedure and treatment not carried out because of other contraindication; Z79.84 Long term (current) use of oral hypoglycemic drugs
CPT/HCPCS: 82948; 99211; G0463; J7120

== ENCOUNTER 2024-05-17 12:05 | Emergency (ER) | payer OTHER, SELFPAY ==
--- NOTE | ~2024-05-17 | XR_ITS ---
EXAMINATION: XR chest 2V DATE: 05/17/2024 12:53 INDICATION: Cough. TECHNIQUE: Frontal and lateral views of the chest were obtained. COMPARISON: Chest single view 09/19/2019, chest CT 09/20/2019 FINDINGS: There is no pneumonia, pleural effusion, or pneumothorax. The heart size is normal. IMPRESSION: 1. No acute cardiopulmonary disease. Reviewed, dictated and finalized at location A. HOP DANCER
[2024-05-17 12:23] VITALS: BP 111/52; PULSE 64; RESP 14; TEMP 36.2; O2SAT 98
--- NOTE | 2024-05-17 12:38 | ED_ITS ---
HPI - URI/Sore Throat General Chief Complaint: Upper Respiratory Infection Stated Complaint: cough,weak,eating very little Time Seen by Provider: 05/17/24 12:48 Source: patient, RN notes reviewed and old records reviewed Mode of arrival: ambulatory Limitations: no limitations History of Present Illness HPI Narrative: Patient presents accompanied by her daughter. Reportedly, patient has had runny nose, sinus pain, sinus drainage, cough, chest congestion for 2 weeks. She denies any fever, chills, sweats. Has intermittently been taken [id number] medication with moderate relief. She is not in any distress, including respiratory distress. She denies any injury or trauma. Voices no other concerns or complaints Related Data Home Medications ?Medication ?Instructions ?Recorded ?Confirmed ?Last Taken ?Type ergocalciferol (vitamin D2) 1,250 1,250 mcg PO WEEKLY 09/19/19 02/13/24 Unknown History mcg (50,000 unit) capsule omeprazole 40 mg capsule,delayed 40 mg PO DAILY 09/19/19 02/13/24 09/22/21 History release abatacept 125 mg/mL subcutaneous 125 mg subcut WEEKLY 01/24/24 02/13/24 Unknown History auto-injector (Orencia ClickJect) cyclobenzaprine 10 mg tablet 10 mg PO TID 01/24/24 02/13/24 Unknown History duloxetine 60 mg capsule,delayed 90 mg PO DAILY 01/24/24 02/13/24 Unknown History release famotidine 20 mg tablet 40 mg PO DAILY 01/24/24 02/13/24 Unknown History meloxicam 15 mg tablet 15 mg PO DAILY 01/24/24 02/13/24 Unknown History prednisone 20 mg tablet 20 mg PO BID 01/24/24 02/13/24 Unknown History Allergies Allergy/AdvReac Type Severity Reaction Status Date / Time clem Allergy Severe Anaphylaxis Verified 05/17/24 12:32 aspirin Allergy Intermediate Hives / Verified 05/17/24 12:32 Red Face Review of Systems Review of Systems: All systems reviewed & are unremarkable except as noted in HPI and below Constitutional: Constitutional: Reports no additional constitutional complaints, Reports headache(s) and Reports lethargy ENT: Reports system reviewed and no additional complaints, except as documented, Reports nasal congestion, Reports nasal discharge, Reports sinus pain and Reports sinus pressure Cardiovascular: Cardiovascular: Reports no additional cardiovascular complaints Respiratory: Respiratory: Reports no additional respiratory complaints, Reports chest congestion, Reports cough and Reports excessive phlegm production Gastrointestinal: Gastrointestinal: Reports no additional gastrointestinal complaints [facility] Past Medical History Medical History (Updated 05/17/24 @ 13:04 by aLura Jacobo APRN) History of active tuberculosis Sleep apnea Anxiety GERD (gastroesophageal reflux disease) Cirrhosis of liver She reports a hx of liver cirrhosis. She follows with a specialist at [facility]. She reports that she had a biopsy per her [facility] specialist but cannot provide any further details. Type 2 diabetes mellitus Arthritis Vertigo Surgical History Surgical History History of total left hip arthroplasty History of hysterectomy History of lumbar fusion Family History Family History Mother No problems noted. Father Diabetes mellitus Other Kidney disease Social History Social History Social History: Mrs. Preston reports that she lives at home in [place], [place] with her and two of her seven children. She reports that she has not worked in 4 years. 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 She wishes to be a full code. She has designated her , Yvonne Preston, as her surrogate decision maker. Smoking status: Never smoker Alcohol intake: never Substance use: never Living arrangements: with family Gender identity (if verbalized by the patient): Female Sexual Orientation (if Verbalized by the Patient): Straight or Heterosexual Spiritual care concerns: No Comments At the time of my signature, I reviewed and agree with the nursing past medical, surgical, social, and family history. There is no relevant family history pertinent to the patient complaint. Exam Const: General: cooperative, no acute distress, alert and awake Orientation/consciousness: oriented to person, oriented to place and oriented to time HENMT: Head: normal to inspection Ears: TM abnormal dull bilateral and with fluid behind the TM bilateral Face and sinus: sinus tenderness Mouth: Yes moist mucous membranes Resp: Effort & Inspection: normal respiratory effort and able to speak in complete sentences Auscultation: clear to auscultation bilaterally, no crackles, no rales, no rhonchi and no wheezes Cardio: Palpation: normal PMI Rate: regular rate Rhythm: regular rhythm Heart sounds: S1 normal heart sound present and S2 normal heart sound present Neuro: General: oriented to person, oriented to place and oriented to time Cranial nerves: Yes CN's II-XII intact bilaterally Psych: Appearance: grossly normal Thought process: Normal thought process present Insight: Good insight present (Psych) Judgement: Good judgement present (Psych) Course Course Level of Care: Express Care Visit Vital Signs Vital signs: Vital Signs Temperature 97.2 F L 05/17/24 12:23 Pulse Rate 64 05/17/24 12:23 Respiratory Rate 14 05/17/24 12:23 Blood Pressure 111/52 L 05/17/24 12:23 Pulse Oximetry 98 05/17/24 12:23 Oxygen Delivery Room Air 05/17/24 12:23 Temperature 97.2 F L 05/17/24 12:23 Pulse Rate 64 05/17/24 12:23 Respiratory Rate 14 05/17/24 12:23 Blood Pressure 111/52 L 05/17/24 12:23 Pulse Oximetry 98 05/17/24 12:23 Oxygen Delivery Room Air 05/17/24 12:23 Reviewed MDM - URI/Sore Throat MDM Narrative Medical decision making narrative: Negative chest x-ray. History and exam consistent with sinusitis. Patient nontoxic appearing, stable for discharge home on p.o. antibiotic therapy Discharge instructions reviewed with patient, as well as provided in writing per nursing staff. The instructions also include specific and strict return/GO TO THE ER as well as f/u information. All questions have been answered, and the patient deny any further questions with discharge and discharge plan. Some parts of this dictation were generated by voice recognition software and may contain typographical and/or grammatical inaccuracies. Differential Diagnosis Differential diagnosis: Likely upper respiratory infection, otitis media, sinusitis and viral infection Medical Records Attestation: I reviewed the patient's medical records. Lab Data Attestation: I reviewed the patient's lab results. Imaging Data Attestation: I personally reviewed and interpreted this imaging study as follows: My impression: no acute findings Radiologist's impression: [facility] [address] [place] [address] XRay Report Signed Patient: Paloma Preston : 1960 MR#: [id number] Age: 64 Acct:[id number] Loc: [facility] ADM Date: 05/17/24Attending Dr: Ordering Physician: Laura Jacobo FNP Date of Service: 05/17/24 Procedure(s): XR chest 2V Accession Number(s): [id number] cc: Laura Jacobo FNP; César Lala MD~ EXAMINATION: XR chest 2V DATE: 05/17/2024 12:53 INDICATION: Cough. TECHNIQUE: Frontal and lateral views of the chest were obtained. COMPARISON: Chest single view 09/19/2019, chest CT 09/20/2019 FINDINGS: There is no pneumonia, pleural effusion, or pneumothorax. The heart size is normal. IMPRESSION: 1. No acute cardiopulmonary disease. Reviewed, dictated and finalized at location A. D ABUSE WORKER Please be advised this is a medical document. It is intended for [id number] communication. It is written in medical language and may contain unfamiliar abbreviations or verbiage. Medical documents are intended to carry relevant information, facts as evident, and the clinical opinion of the practitioner at the time of the encounter. This report may have been done utilizing a voice recognition system. Attempts have been made to correct errors. However, there may be uncorrected grammatical, spelling, and recognition errors present. The file time of this note does not necessarily represent the time of service. Dictated By: Gurpreet Donald MD 05/17/24 1254 Signed By: <Electronically signed by Gurpreet Donald MD in OV> Discharge Plan Discharge Clinical Impression: Sinusitis Qualifiers: Sinusitis location: frontal Chronicity: acute Recurrence: not specified as recurrent Qualified Code(s): J01.10 - Acute frontal sinusitis, unspecified Patient Disposition: Home, Self-Care Condition: Stable Instructions: Antibiotic Form, Sinusitis (ED) Additional Instructions: Take medications as prescribed. Follow-up with primary care provider. Emergency department for new or worse symptoms Patient Language: Azeri Prescriptions: New amoxicillin-pot clavulanate 875-125 mg tablet 1 tablet PO Q12H Qty: 14 0RF fluticasone propionate [24 Hour Allergy Relief] 50 mcg/actuation spray,suspension 1 spray intranasal DAILY Qty: 16 0RF Rx Instructions: administer into each nostril No Action cyclobenzaprine 10 mg tablet 10 mg PO TID duloxetine 60 mg capsule,delayed release(DR/EC) 90 mg PO DAILY famotidine 20 mg tablet 40 mg PO DAILY meloxicam 15 mg tablet 15 mg PO DAILY Orencia ClickJect 125 mg/mL auto-injector 125 mg subcut WEEKLY prednisone 20 mg tablet 20 mg PO BID Rx Instructions: 1 tab po bid for 5 days (DME) pen needle, diabetic [BD Ultra-Fine Daja Pen Needle] 32 gauge x 5/32 needle See Rx Instructions .ROUTE .MEDSUPPLY Qty: 100 1RF Rx Instructions: As directed (DME) FreeStyle Joleen 3 Solon Misc See Rx Instructions .Route Qty: 1 0RF Rx Instructions: As directed (DME) FreeStyle Joleen 3 Sensor Device See Rx Instructions .ROUTE .MEDSUPPLY Qty: 6 3RF Rx Instructions: As directed tirzepatide 7.5 mg/0.5 mL pen injector 7.5 mg subcut WEEKLY Qty: 6 1RF ergocalciferol (vitamin D2) 1,250 mcg (50,000 unit) capsule 1,250 mcg PO WEEKLY omeprazole 40 mg capsule,delayed release(DR/EC) 40 mg PO DAILY Gvoke PFS 1-Pack Syringe 1 mg/0.2 mL syringe 1 mg subcut Q20M PRN (Reason: hypoglycemia) Qty: 0.2 1RF Rx Instructions: until target blood sugar attained insulin glargine [Lantus Solostar U-100 Insulin] 100 unit/mL (3 mL) insulin pen 20 unit subcut QAM 90 Days Qty: 18 1RF Follow-up/Referrals: César Lala MD [Primary Care Provider] - 2 Weeks Time of Disposition: 13:05
== END 2024-05-17 13:08 | disposition home or self-care (01) ==
PROVIDERS: Emergency Provider Nurse Practitioner Family; PCP Family Medicine
DX: J01.10 Acute frontal sinusitis, unspecified (principal); E11.9 Type 2 diabetes mellitus without complications; Z79.4 Long term (current) use of insulin; Z79.85 Long-term (current) use of injectable non-insulin antidiabetic drugs; K74.60 Unspecified cirrhosis of liver; K21.9 Gastro-esophageal reflux disease without esophagitis; M19.90 Unspecified osteoarthritis, unspecified site; Z96.642 Presence of left artificial hip joint
CPT/HCPCS: 71046; 99213; G0463